=== PATIENT | female | born 1960 | race Caucasian/White ===

== ENCOUNTER 2018-01-12 19:31 | Emergency (ER) | payer OTHER ==
[~2018-01-12] VITALS: Ht 157.5 cm; Wt 74.8 kg
[2018-01-12 19:41] VITALS: BP 140/82
[2018-01-12] MEDS ORDERED: BACITRACIN ZINC OINT PACKET 1 EA PACKET TP ONE (20:30)
== END 2018-01-12 20:37 | disposition home or self-care (01) ==
LOC: ER 19:41
DX: L03.011 Cellulitis of right finger (principal); E78.00 Pure hypercholesterolemia, unspecified; J45.909 Unspecified asthma, uncomplicated; Z88.1 Allergy status to other antibiotic agents
CPT/HCPCS: A4606; Z7610

== ENCOUNTER 2018-02-14 20:51 | Emergency (ER) | payer OTHER ==
[~2018-02-14] VITALS: Ht 167.6 cm; Wt 81.6 kg
[2018-02-14 21:10] VITALS: BP 150/85
--- NOTE | 2018-02-15 00:09 | NUR ---
INFORMED BY ADMITTING "PT LEFT"
== END 2018-02-15 00:10 | disposition left against medical advice (07) ==
LOC: ER 20:56
DX: R05 Cough (principal); J45.909 Unspecified asthma, uncomplicated; Z98.890 Other specified postprocedural states; Z53.21 Procedure and treatment not carried out due to patient leaving prior to being seen by health care provider
CPT/HCPCS: A4606; Z7610

== ENCOUNTER 2019-03-28 11:04 | Inpatient (IN) | payer OTHER ==
[~2019-03-28] VITALS: Ht 152.4 cm; Wt 70.3 kg
--- NOTE | 2019-03-28 11:19 | NUR ---
SOB X 2 DAY, HX OF ASTHMA. NO ACUTE DISTRESS NOTED. C/O CHEST PAIN 8/10. O2 SAT 97% ON RA. ON MONITOR AND MADE COMFORTABLE. FAMILY AT BEDSIDE. READY FOR EVAL.
[2019-03-28] MEDS ORDERED: predniSONE 20 MG TABLET ONE (11:22)
--- NOTE | 2019-03-28 11:25 | NUR ---
ML GRAY AT BEDSIDE FOR EKG
[2019-03-28] MEDS ORDERED: IPRATROPIUM NEB FS 0.5 MG/2.5 ML AMPUL.NEB NEB ONE (11:30)
[2019-03-28] MEDS ORDERED: KETOROLAC TROMETHAMINE INJ 30 MG/ML VIAL IM ONE (11:30)
[2019-03-28] MEDS ORDERED: predniSONE 20 MG TABLET PO ONE (11:30)
[2019-03-28] MEDS ORDERED: ALBUTEROL FS 2.5 MG/3 ML VIAL.NEB NEB ONE (11:30)
[2019-03-28] MEDS ORDERED: KETOROLAC TROMETHAMINE INJ 30 MG/ML VIAL ONE (11:33)
--- NOTE | 2019-03-28 11:40 | NUR ---
MEDS GIVEN PER PA ORDER. WILL FOLLOW UP ACCORDINGLY
[2019-03-28 12:29] LABS: HEMATOCRIT 39 % (33-45)
[2019-03-28] MEDS ORDERED: IV NS 0.9% 1,000 ML BAG IV ONE (12:30)
[2019-03-28 12:32] LABS: BASOPHILS % (AUTO) 0.7 % (0.0-2.0); EOSINOPHILS % (AUTO) 1.9 % (0.0-6.0); HEMOGLOBIN 13.7 g/dL (11.5-14.8); LYMPHOCYTES # (AUTO) 1.8 /CMM (0.8-4.8); LYMPHOCYTES % (AUTO) 42.8 % (20.0-44.0); MEAN CORPUSCULAR HGB CONC 35 g/dl (31.0-36.0); MEAN CORPUSCULAR VOLUME 86 fL (82-100); MONOCYTES # (AUTO) 0.4 /CMM (0.1-1.30); MONOCYTES % (AUTO) 8.6 % (2.0-12.0); NEUTROPHILS # (AUTO) 1.9 /CMM (1.8-8.9); PLATELET COUNT (AUTO) 123 /CMM (150-450); RED BLOOD CELL COUNT(AUTO) 4.56 MIL/uL (4.0-5.2); WHITE BLOOD COUNT (AUTO) 4.2 K/uL (4.3-11.0)
[2019-03-28 12:35] LABS: CALCIUM, SERUM 8.7 mg/dL (8.5-10.1); CREATININE 0.6 mg/dL (0.6-1.3); POTASSIUM 3.4 mmol/L (3.5-5.1)
[2019-03-28] MEDS ORDERED: AZITHROMYCIN 500 MG in IV D5W 250 ML IV ONE (13:00)
[2019-03-28] MEDS ORDERED: CEFTRIAXONE 1GM BAG (ER ONLY) 50 ML IV ONE (13:00)
[2019-03-28] MEDS ORDERED: ASPI-605 PO (13:07)
[2019-03-28] MEDS ORDERED: CYCL5TAB PO (13:07)
[2019-03-28] MEDS ORDERED: AMLO5TAB4 PO (13:07)
[2019-03-28] MEDS ORDERED: GABA-532 PO (13:07)
[2019-03-28] MEDS ORDERED: SIMV20TA6 PO (13:07)
[2019-03-28] MEDS ORDERED: FLUT100D IH (13:07)
[2019-03-28] MEDS ORDERED: OMEP20CA11 PO (13:07)
--- NOTE | 2019-03-28 13:54 | NUR ---
Patient is resting comfortably in bed with eyes closed. Easily aroused. VSS
--- NOTE | 2019-03-28 16:02 | NUR ---
CALLED DR TERAN OFFICE. PA SPEAKING TO HIM NOW
--- NOTE | 2019-03-28 16:10 | NUR ---
CALLED HOUSE SUP FOR TELE BED
--- NOTE | 2019-03-28 16:12 | NUR ---
PT RESTING COMFORTABLY IN BED. NO COMPLAINTS AT THIS TIME. VSS, WILL CONT TO MONITOR.
--- NOTE | 2019-03-28 16:45 | NUR ---
CALLED HOUSE SUP FOR TELE BED
--- NOTE | 2019-03-28 16:51 | NUR ---
TELE BED 320-1
--- NOTE | 2019-03-28 17:25 | NUR ---
REPORT GIVEN TO DUNIA LEOS FOR 320-1 T, DR TERAN
--- NOTE | 2019-03-28 17:54 | NUR ---
[facility]
[2019-03-28 18:00] VITALS: BP 128/80
[2019-03-28] MEDS ORDERED: ALBUTEROL FS 2.5 MG/3 ML VIAL.NEB ONE (18:09)
--- NOTE | 2019-03-28 18:23 | NUR ---
Tele/RN - Admission Received patient from ER, alert and oriented x 4, denies chest pain, palpitation but c/o shortness of breath with exertion, tele shows SR. Admitted for Pneumonia under the care of Dr. Last. Patient oriented to room, all belongings accounted for. Saline lock on the LAC is patent and intact. Skin assessment done, no skin breakdown, refused photo to be taken. Fall and safety precautions initiated. Awaiting for admission orders from Dr. Last. Daughter at bedside. Will continue to monitor closely.
[2019-03-28] MEDS ORDERED: ACETAMINOPHEN 325 MG TABLET PO PRN (19:00)
[2019-03-28] MEDS ORDERED: ZOLPIDEM TARTRATE 5 MG TABLET PO PRN (19:00)
[2019-03-28] MEDS ORDERED: IV 1/2NS 1000 ML 1,000 ML IV PRN (19:00)
--- NOTE | 2019-03-28 19:00 | NUR ---
HOME HEALTH OCCUPATIONAL THERAPIST NOTE RECEIVED PT IN STABLE CONDITION A&O X4, FAROESE SPEAKING. PT IS AWAKE IN BED, DAUGHTER AT BEDSIDE. NO SIGNS OF SOB OR DISTRESS, NO C/O PAIN. IV IN L AC IN PLACE. ALL CURRENT NEEDS ATTENDED TO. BED LOW, LOCKED, UPPER RAILS UP, AND CALL LIGHT WITHIN REACH. WILL CONT TO MONITOR.
[2019-03-28 19:58] VITALS: BP 137/77
[2019-03-28 20:00] VITALS: BP 134/81
[2019-03-28] MEDS ORDERED: SIMVASTATIN 20 MG TABLET PO SCH (22:00)
--- NOTE | 2019-03-28 22:17 | NUR ---
UX DEVELOPER NOTE PRN KONSTANTIN GIVEN PER PT REQUEST. WILL CONT. TO MONITOR.
[2019-03-29] VITALS: BP 129/71
[2019-03-29 00:20] VITALS: BP 129/71
[2019-03-29 04:00] VITALS: BP 138/76
[2019-03-29 04:28] VITALS: BP 138/76
--- NOTE | 2019-03-29 06:12 | NUR ---
ROAD ROLLER ENGINEER NOTE PT IN STABLE CONDITION A&O X4, TURKISH SPEAKING. PT IS AWAKE IN BED. NO SIGNS OF SOB OR DISTRESS, NO C/O PAIN. IV IN L AC IN PLACE WITH IVF INFUSING. TELE MONITOR: SB 58. ALL CURRENT NEEDS ATTENDED TO. BED LOW, LOCKED, UPPER RAILS UP, AND CALL LIGHT WITHIN REACH. WILL CONT TO MONITOR AND ENDORSE TO NEXT SHIFT FOR E[facility]OTT.
[2019-03-29] MEDS ORDERED: PANTOPRAZOLE 40 MG TABLET.DR PO SCH (07:30)
--- NOTE | 2019-03-29 07:31 | NUR ---
Tele/RN - Assessment Patient in bed awake, A/O X 4, denies shortness of breath, no complaints overnight, states breathing better, stable on room air, no apparent distress seen, tele shows SB.IVF 1/2 NS at 75 ml/hr infusing well on the LAC with no signs of infiltration. Skin is intact. Patient is ambulatory with steady gait. Lab works done with pending result. Fall precautions maintained. Patient updated on plan of care and in agreement. Will continue with current medical management.
[2019-03-29 07:35] LABS: BASOPHILS % (AUTO) 0.4 % (0.0-2.0); EOSINOPHILS % (AUTO) 1.2 % (0.0-6.0); HEMATOCRIT 38 % (33-45); LYMPHOCYTES # (AUTO) 1.8 /CMM (0.8-4.8); LYMPHOCYTES % (AUTO) 31.2 % (20.0-44.0); MEAN CORPUSCULAR HGB CONC 34 g/dl (31.0-36.0); MEAN CORPUSCULAR VOLUME 87 fL (82-100); MONOCYTES # (AUTO) 0.5 /CMM (0.1-1.30); MONOCYTES % (AUTO) 9.2 % (2.0-12.0); NEUTROPHILS # (AUTO) 3.3 /CMM (1.8-8.9); PLATELET COUNT (AUTO) 131 /CMM (150-450); RED BLOOD CELL COUNT(AUTO) 4.41 MIL/uL (4.0-5.2); WHITE BLOOD COUNT (AUTO) 5.7 K/uL (4.3-11.0)
[2019-03-29 07:36] LABS: CALCIUM, SERUM 8.7 mg/dL (8.5-10.1); CREATININE 0.8 mg/dL (0.6-1.3); POTASSIUM 3.9 mmol/L (3.5-5.1)
[2019-03-29 08:00] VITALS: BP 140/87
[2019-03-29 08:05] VITALS: BP 140/87
--- NOTE | 2019-03-29 08:20 | NUR ---
Tele/RN - Hospitalist Poncho Seen and examined by Dr. Last with order to discharge patient today. Patient will be on oral Levaquin 500 mg daily x 5 days for Pneumonia and continue her home medications. First dose of Levaquin to be given today.
[2019-03-29] MEDS ORDERED: LEVO500T75 PO (08:21)
[2019-03-29] MEDS ORDERED: GABAPENTIN 100 MG CAPSULE PO SCH (09:00)
[2019-03-29] MEDS ORDERED: ASPIRIN EC 81 MG TABLET.DR PO SCH (09:00)
[2019-03-29] MEDS ORDERED: LEVOFLOXACIN (500MG) 500 MG TABLET PO SCH (09:00)
[2019-03-29] MEDS ORDERED: CYCLOBENZAPRINE 10 MG TABLET PO SCH (09:00)
[2019-03-29] MEDS ORDERED: AMLODIPINE BESYLATE 5 MG TABLET PO SCH (09:00)
--- NOTE | 2019-03-29 09:35 | NUR ---
MS/RN - Telemetry Telemetry monitoring discontinued.
[2019-03-29] MEDS: ALBUTEROL FS 2.5 MG/3 ML VIAL.NEB NEB PRN ×2 (10:27→15:09)
[2019-03-29] MEDS: IPRATROPIUM NEB FS 0.5 MG/2.5 ML AMPUL.NEB NEB PRN ×2 (10:27→15:09)
[2019-03-29] MEDS ORDERED: CEFTRIAXONE 1 G in IV D5W 50 ML IV SCH (13:00)
[2019-03-29] MEDS ORDERED: AZITHROMYCIN 500 MG in IV D5W 250 ML IV SCH (14:00)
--- NOTE | 2019-03-29 15:40 | NUR ---
MS/RN - Discharge Note Patient alert and oriented throughout the shift, discharged home in stable condition, remain afebrile, no c/o shortness of breath, breathing improved, stable on room air, denies any pain, ambulatory with steady gait. Reviewed discharge instructions with patient and daughter both verbalized full understanding of all teachings including medications and follow-up care with PCP in one week, continue home meds and take oral Levaquin 500 mg daily x 5 days. Patient advised to seek immediate medical attention for worsening symptoms, chest pain, shortness of breath, palpitations, abdominal pain/distention, intractable, nausea and vomiting, diarrhea, hematochezia, melena, weakness, loss of consciousness, neurological deficit, or any other emergent concerns. All belongings with patient and she deny any missing items. Patient refused photos to be taken of skin, intact. Saline lock removed on the left AC with catheter tip intact, no redness, no swelling noted at the site. Discharge paperwork signed and copies were given per protocol. Accompanied to the lobby and transported via private car by daughter.
== END 2019-03-29 15:30 | disposition home or self-care (01) | DRG 139 ==
LOC: ER 11:05 → TELE 17:00 → MED 03-29 08:19
PROVIDERS: ADMIT Internal Medicine; ATTEND Internal Medicine
DX: J15.9 Unspecified bacterial pneumonia (principal); E78.5 Hyperlipidemia, unspecified; I10 Essential (primary) hypertension; J45.909 Unspecified asthma, uncomplicated; Z79.899 Other long term (current) drug therapy; Z79.82 Long term (current) use of aspirin; Z79.51 Long term (current) use of inhaled steroids
CPT/HCPCS: 36415; 71045-TC; 80048-TC; 83605-TC; 85025-TC; 87040-TC; 87081-TC; G0378; J0456; J0696; J1885; J3490; J7030; J7060